=== PATIENT | male | born 2000 | race Caucasian/White ===

== ENCOUNTER 2024-08-24 14:43 | Emergency (ER) | payer OTHER, MEDICAID ==
[~2024-08-24] VITALS: Ht 170.2 cm; Wt 77.0 kg
[2024-08-24 14:44] VITALS: O2SAT 98
[2024-08-24] MEDS ORDERED: IBUP-2029 MT (16:02)
[2024-08-24] MEDS ORDERED: METH-653 MT (16:02)
[2024-08-24 16:36] VITALS: BP 130/91; PULSE 81; RESP 17; TEMP 36.72516; O2SAT 98
== END 2024-08-24 16:37 | disposition home or self-care (01) ==
LOC: ER 14:43
DX: S33.5XXA Sprain of ligaments of lumbar spine, initial encounter (principal); V43.62XA Car passenger injured in collision with other type car in traffic accident, initial encounter; Y93.89 Activity, other specified; Y92.89 Other specified places as the place of occurrence of the external cause; Y99.8 Other external cause status
CPT/HCPCS: 99283